=== PATIENT | male | born 1940 | race Caucasian/White ===

== ENCOUNTER 2021-07-04 01:08 | Emergency (ER) | payer SELFPAY ==
[2021-07-04] MEDS ORDERED: Acetaminophen 500 MG TAB ONE (01:44)
[2021-07-04] MEDS ORDERED: Ondansetron PF 4 MG/2 ML Vial ONE (01:44)
[2021-07-04] MEDS ORDERED: Ibuprofen 400 MG TAB ONE (01:44)
[2021-07-04 02:07] LABS: ALT (SGPT) 25 U/L (8-55); AST (SGOT) 37 U/L (5-34); Albumin 4.1 g/dL (3.4-4.8); Alkaline Phosphatase 107 U/L (40-110); Anion Gap 17 mmol/L (10-20); BUN (Urea Nitrogen) 24 mg/dL (8.4-25.7); Bilirubin, Total 0.7 mg/dL (0.2-1.2); CK (CPK) 75 U/L (30-200); Calc. Creatinine Clearance 0 mL/min (70-130); Calcium 9.2 mg/dL (7.8-10.44); Carbon Dioxide 24 mmol/L (23-31); Chloride 105 mmol/L (98-107); Globulin 2.9 g/dL (2.4-3.5); Glucose 287 mg/dL (83-110); Potassium 3.7 mmol/L (3.5-5.1); Sodium 142 mmol/L (136-145)
[2021-07-04 02:11] LABS: Band 1 % (5-11); Eosinophils 1 % (0-10); Lymphocytes 24 % (21-51); MDiff Complete? YES; Monocytes 2 % (0-10); Neutrophil 72 % (42-75); Platelet Morphology Comment Appears Adequate; RBC Morphology Normal
[2021-07-04] MEDS ORDERED: methylPREDNISolone Sod Succ/PF 125 MG/2 ML VIAL ONE ×2 (02:11→07:37)
[2021-07-04] MEDS ORDERED: Furosemide 40 MG/4 ML VIAL ONE ×2 (02:11→02:14)
[2021-07-04 02:12] LABS: Hemoglobin 13.7 g/dL (14.0-18.0); Mean Corpuscular HGB CONC 32.3 g/dL (32.0-36.0); Mean Corpuscular Hemoglobin 32.6 pg (27.0-31.0); Mean Platelet Volume 12.8 fL (7.4-10.4); Platelet Count 346 thou/uL (130-400); RBC Distribution Width 13.1 % (11.5-14.5); Red Blood Cell (RBC) Count 4.18 mill/uL (4.70-6.10); White Blood Cell (WBC) Count 24.7 thou/uL (4.8-10.8)
[2021-07-04] MEDS ORDERED: Sodium Chloride 0.9% 50 ML ONE (02:23)
[2021-07-04 02:25] LABS: CKMB 2.4 ng/mL (0-6.6)
[2021-07-04] MEDS ORDERED: Azithromycin 500 MG VIAL ONE (03:05)
[2021-07-04] MEDS ORDERED: Sodium Chloride 0.9% 250 ML 250 ML ONE (03:07)
[2021-07-04 03:49] LABS: SARS-CoV-2 NAA Rapid Test Not Detected (NotDetected)
[2021-07-04] MEDS ORDERED: cefTRIAXone\\ROCEPHIN 2 GM VIAL ONE (03:56)
[2021-07-04] MEDS ORDERED: cefTRIAXone\\ROCEPHIN 250 MG VIAL ONE (03:56)
[2021-07-04] MEDS ORDERED: Sodium Chloride 0.9% 100 ML ONE (03:57)
[2021-07-04] MEDS ORDERED: Enoxaparin Sodium 40 MG/0.4 ML SYRINGE ONE (04:16)
[2021-07-04 05:26] LABS: Lactic Acid 1.6 mmol/L (0.5-2.2)
== END 2021-07-04 05:35 | disposition short-term general hospital (02) ==
LOC: MADERS 01:08
DX: J18.9 Pneumonia, unspecified organism (principal); I50.9 Heart failure, unspecified; Z20.822 Contact with and (suspected) exposure to COVID-19; R79.89 Other specified abnormal findings of blood chemistry; R06.03 Acute respiratory distress; R09.02 Hypoxemia
CPT/HCPCS: 0240U; 71045; 80053; 82550; 82553; 83605; 83880; 84484; 85025; 85379; 86140; 87040; 93005; 94760; 96365; 96367; 96372; 96375; J0456; J0696; J1650; J1940; J2405; J2930; J3490; J7050; J7620